=== PATIENT | female | born 1965 | race Caucasian/White ===

== ENCOUNTER 2016-04-26 21:07 | Emergency (ER) | payer OTHER ==
[~2016-04-26 21:07] MED LIST: CELEXA20 MG PO; CHILDRENS CHEWA81 MG PO; DILANTIN KAPSE100 MG PO; NITROGLYCERIN0.4 MG SL
== END 2016-04-26 21:37 | disposition home or self-care (01) ==
LOC: ER 21:07
DX: T88.1XXA Other complications following immunization, not elsewhere classified, initial encounter (principal); R22.9 Localized swelling, mass and lump, unspecified; G40.909 Epilepsy, unspecified, not intractable, without status epilepticus; F17.210 Nicotine dependence, cigarettes, uncomplicated; Z79.899 Other long term (current) drug therapy
CPT/HCPCS: 99282

== ENCOUNTER 2016-05-31 18:11 | Emergency (ER) | payer OTHER | END 2016-06-01 00:39 | disposition left against medical advice (07) | LOC: ER 18:11 | DX: Z53.21 Procedure and treatment not carried out due to patient leaving prior to being seen by health care provider (principal) | CPT/HCPCS: 93005; 99211 ==

== ENCOUNTER 2016-06-12 16:01 | Emergency (ER) | payer OTHER | END 2016-06-12 17:25 | disposition home or self-care (01) | LOC: ER 16:01 | DX: M54.12 Radiculopathy, cervical region (principal); Z98.51 Tubal ligation status; Z79.899 Other long term (current) drug therapy ==

== ENCOUNTER 2016-06-17 14:38 | Emergency (ER) | payer OTHER ==
[2016-06-17 15:14] LABS: URINE BILIRUBIN NEGATIVE (NEGATIVE); URINE BLOOD NEGATIVE (NEGATIVE); URINE GLUCOSE (UA) NORMAL (NORMAL); URINE KETONE NEGATIVE (NEGATIVE); URINE LEUKOCYTE ESTERASE 1+ (NEGATIVE); URINE NITRATE NEGATIVE (NEGATIVE); URINE PROTEIN NEGATIVE (NEGATIVE); UROBILINOGEN NORMAL mg/dL (<1.0)
[2016-06-17 15:31] LABS: BASO % 0.3 % (0.1-1.2); EOS % 0.2 % (0.7-5.8); GRAN # 7.1 10_X3_uL (1.6-6.1); GRAN % 69.1 % (34.0-71.1); HEMATOCRIT 39.7 % (34-45); HEMOGLOBIN 13.8 g/dL (11.2-15.7); LYMPH # 1.9 10_X3_uL (1.2-3.7); LYMPH % 18.9 % (19.3-51.7); MEAN CORPUSCULAR HEMOGLOBIN 30.3 pg (27.0-33.0); MEAN CORPUSCULAR HGB CONC 34.8 g/dL (32.0-36.0); MEAN CORPUSCULAR VOLUME 87.3 fL (79-95); MEAN PLATELET VOLUME 8.8 fl (7.5-11.5); MONO # 1.2 10_X3_uL (0.2-0.9); MONO % 11.5 % (4.7-12.5); PLATELET COUNT 272 x10_3/uL (182-369); RED BLOOD COUNT 4.55 x10_6/uL (3.9-5.2); RED CELL DISTRIBUTION WIDTH 12.8 % (11.7-14.4); WHITE BLOOD COUNT 10.2 x10_3/uL (4.0-10.0)
[2016-06-17 15:32] LABS: URINE WBC 0-5 /[HPF] (0-5)
[2016-06-17 15:33] LABS: URINE BACTERIA TRACE (NONE SEEN); URINE SQUAMOUS EPITHELIAL CELL 0-10 /[HPF] (NONE SEEN)
[2016-06-17 15:44] LABS: ALBUMIN 3.8 gm/dL (3.4-5.0); ALKALINE PHOSPHATASE 97 U/L (50-136); ALT/SGPT 32 U/L (3.5-33.9); AST/SGOT 136 U/L (7.04-26.96); BILIRUBIN,TOTAL 0.44 mg/dL (0.0-1.0); BLOOD UREA NITROGEN 9 mg/dL (7-18); CALCIUM 8.6 mg/dL (8.7-10.7); CARBON DIOXIDE 26 mmol/L (21-32); CREATININE 0.9 mg/dL (0.6-1.3); GLUCOSE,RANDOM 177 mg/dL (70-99); LIPASE 22 U/L (6.75-60.75); POTASSIUM 3.5 mmol/L (3.5-5.1); SODIUM 140 mmol/L (136-145); TOTAL PROTEIN 6.4 gm/dL (6.4-8.2)
== END 2016-06-17 16:53 | disposition home or self-care (01) ==
LOC: ER 14:38
PROVIDERS: Internal Medicine
DX: R11.10 Vomiting, unspecified (principal); R19.7 Diarrhea, unspecified; R10.9 Unspecified abdominal pain; Z79.899 Other long term (current) drug therapy
CPT/HCPCS: 36415; 80053; 81001; 83690; 85025; 96361; 96374; 99070; 99283-25

== ENCOUNTER 2016-06-24 02:41 | Emergency (ER) | payer OTHER ==
[2016-06-24 03:10] LABS: BASO % 0.2 % (0.1-1.2); EOS # 0.1 10_X3_uL (0.0-0.4); EOS % 0.9 % (0.7-5.8); GRAN # 6.1 10_X3_uL (1.6-6.1); GRAN % 67.5 % (34.0-71.1); HEMATOCRIT 34.4 % (34-45); HEMOGLOBIN 11.9 g/dL (11.2-15.7); LYMPH % 21.7 % (19.3-51.7); MEAN CORPUSCULAR HEMOGLOBIN 30.3 pg (27.0-33.0); MEAN CORPUSCULAR HGB CONC 34.6 g/dL (32.0-36.0); MEAN CORPUSCULAR VOLUME 87.5 fL (79-95); MEAN PLATELET VOLUME 9.1 fl (7.5-11.5); MONO # 0.9 10_X3_uL (0.2-0.9); MONO % 9.7 % (4.7-12.5); PLATELET COUNT 375 x10_3/uL (182-369); RED BLOOD COUNT 3.93 x10_6/uL (3.9-5.2); RED CELL DISTRIBUTION WIDTH 12.2 % (11.7-14.4)
[2016-06-24 03:22] LABS: BLOOD UREA NITROGEN 14 mg/dL (7-18); CALCIUM 8.8 mg/dL (8.7-10.7); CARBON DIOXIDE 25 mmol/L (21-32); CREATININE 0.8 mg/dL (0.6-1.3); GLUCOSE,RANDOM 163 mg/dL (70-99); PHENYTOIN (DILANTIN) 2.7 ug/ml (10.0-20.0); POTASSIUM 3.4 mmol/L (3.5-5.1); SODIUM 140 mmol/L (136-145)
== END 2016-06-24 04:20 | disposition home or self-care (01) ==
LOC: ER 02:41
PROVIDERS: Emergency Medicine
DX: G40.909 Epilepsy, unspecified, not intractable, without status epilepticus (principal); Z91.14 Patient's other noncompliance with medication regimen; S00.83XA Contusion of other part of head, initial encounter; W22.8XXA Striking against or struck by other objects, initial encounter; Z79.899 Other long term (current) drug therapy
CPT/HCPCS: 36415; 80048; 80185; 85025; 96374; 96375; 99070; 99284-25